=== PATIENT | female | born 1990 | race Caucasian/White ===

== ENCOUNTER 2018-11-28 21:57 | Emergency (ER) | payer MEDICAID, OTHER ==
[~2018-11-28] VITALS: Ht 162.6 cm; Wt 70.0 kg
[2018-11-28 22:02] VITALS: Ht 162.6 cm; Wt 70.0 kg
[2018-11-28] MEDS ORDERED: HYDROmorphONE 1 MG/ML SYG IV STA (22:23)
[2018-11-28] MEDS ORDERED: SOD CHLORIDE 0.9% 1,000 ML IV STA (22:23)
[2018-11-28] MEDS ORDERED: ONDANSETRON 4 MG INJ IV STA (22:23)
[2018-11-29] MEDS ORDERED: SOD CHLORIDE 0.9% 100 ML ONE (00:19)
[2018-11-29] MEDS ORDERED: IOHEXOL 300MG/ML 150 ML BTL ONE (00:19)
[2018-11-29 03:33] VITALS: BP 94/60; PULSE 68; RESP 18
[2018-11-29] MEDS ORDERED: HYDR-3980 PO (03:35)
[2018-11-29] MEDS ORDERED: IBUP800T48 PO (03:35)
--- NOTE | 2018-12-19 22:26 | ERD ---
ER Documentation Chief Complaint Chief Complaint bib ra from home for abd. pain and vag bleed, hx of endometriosis HPI This is a 28-year-old female who is here for diffuse pelvic pain, she did start her menstrual cycle yesterday. She has a history of endometriosis and is feeling like this is an exacerbation of her typical endometriosis symptoms of pelvic pain. She has a pelvic pain is crampy and diffuse and radiates to the back at times. No dizziness no nausea vomiting diarrhea or GI other GI symptoms. No dysuria or hematuria ROS All systems reviewed and are negative except as per history of present illness. Medications Home Meds Active Scripts Ibuprofen* (Motrin*) 800 Mg Tab, 800 MG PO Q6H PRN for PAIN AND OR ELEVATED TEMP, #30 TAB Prov:LEKKOS,LIASTOLOS A. DO 11/29/18 Hydrocodone/Acetaminophen ([place] 10-325 Tablet) 1 Each Tablet, 1 TAB PO Q6H PRN for PAIN, #9 TAB Prov:LEKKOS,APOSTOLOS A. DO 11/29/18 Allergies Allergies: Coded Allergies: No Known Allergy (Unverified , 11/28/18) PMhx/Soc Medical and Surgical Hx: pt denies Medical Hx Hx Miscellaneous Medical Probl: Yes (endometriosis ) Hx Alcohol Use: No Hx Substance Use: No Hx Tobacco Use: No Smoking Status: Never smoker FmHx Family History: No coronary disease Physical Exam Physical Exam Const: Well-developed, well-nourished Head: Atraumatic, normocephalic Eyes: Normal Conjunctiva, PERRLA, EOMI, normal sclera, no nystagmus ENT: Normal External Ears, Nose and Mouth, moist mucus membranes. Neck: Full range of motion. No meningismus, no lymphadenopathy. Resp: Clear to auscultation bilaterally, no wheezing, rhonchi, rales Cardio: Regular rate and rhythm, no murmurs, S1 S2 present Abd: Soft, diffuse mild pelvic tenderness, non distended. Normal bowel sounds, no guarding or rebound, no pulsitile abdominal masses or bruits Skin: No petechiae or rashes, no ecchymosis , no maculopapular rash Back: No midline or flank tenderness Ext: No cyanosis, or edema, FROM x 4, normal inspection, n eurovascularly intact x 4 Neur: Awake and alert, STR 5/5 x 4, sensation intact x 4, no focal findings, cerebellum intact Psych: Normal Mood and Affect Results 24 hrs Laboratory Tests Test 11/28/18 00:22 11/28/18 22:43 Urine Color YELLOW Urine Clarity SLIGHTLY CLOUDY Urine pH 6.0 Urine Specific [place] 1.029 Urine Ketones NEGATIVE mg/dL Urine Nitrite NEGATIVE mg/dL Urine Bilirubin NEGATIVE mg/dL Urine Urobilinogen NEGATIVE mg/dL Urine Leukocyte Esterase NEGATIVE [place]/ul Urine Microscopic RBC 4 /HPF Urine Microscopic WBC 2 /HPF Urine Squamous Epithelial Cells FEW /HPF Urine Bacteria FEW /HPF Urine Mucus FEW /HPF Urine Hemoglobin 3+ mg/dL Urine Glucose NEGATIVE mg/dL Urine Total Protein NEGATIVE mg/dl White Blood Count 11.9 10^3/ul Red Blood Count 4.65 10^6/ul Hemoglobin 10.1 g/dl Hematocrit 33.8 % Mean Corpuscular Volume 72.7 fl Mean Corpuscular Hemoglobin 21.7 pg Mean Corpuscular Hemoglobin Concent 29.9 g/dl Red Cell Distribution Width 15.2 % Platelet Count 330 10^3/UL Mean Platelet Volume 11.4 fl Immature Granulocytes % 0.300 % Neutrophils % 76.3 % Lymphocytes % 18.1 % Monocytes % 4.5 % Eosinophils % 0.0 % Basophils % 0.8 % Nucleated Red Blood Cells % 0.0 /100WBC Immature Granulocytes # 0.040 10^3/ul Neutrophils # 9.0 10^3/ul Lymphocytes # 2.2 10^3/ul Monocytes # 0.5 10^3/ul Eosinophils # 0.0 10^3/ul Basophils # 0.1 10^3/ul Nucleated Red Blood Cells # 0.0 10^3/ul Sodium Level 139 mmol/L Potassium Level 3.6 mmol/L Chloride Level 105 mmol/L Carbon Dioxide Level 24 mmol/L Anion Gap 10 Blood Urea Nitrogen 16 mg/dl Creatinine 0.74 mg/dl Est Glomerular Filtrat Rate mL/min > 60 mL/min Glucose Level 110 mg/dl Calcium Level 8.9 mg/dl Total Bilirubin 0.4 mg/dl Direct Bilirubin 0.00 mg/dl Indirect Bilirubin 0.4 mg/dl Aspartate Amino Transf (AST/SGOT) 19 IU/L Alanine Aminotransferase (ALT/SGPT) 15 IU/L Alkaline Phosphatase 95 IU/L Total Protein 7.4 g/dl Albumin 4.2 g/dl Globulin 3.20 g/dl Albumin/Globulin Ratio 1.31 Lipase 56 U/L Serum HCG, Qualitative NEGATIVE Current Medications Medications Dose Sig/Gerardo Start Time Status Last (Trade) Ordered Route PRN Stop Time Admin Dose Reason Admin Sodium 1,000 ml @ Q1H STAT 11/28/18 DC 11/28/18 Chloride 1,000 mls/hr IV 22:23 22:46 11/28/18 23:22 1 mg ONCE STAT 11/28/18 DC 11/28/18 Hydromorphone IV 22: 22:44 HCl 11/28/18 22:25 (Dilaudid) Ondansetron 4 mg ONCE STAT 11/28/18 DC 11/28/18 HCl (Zofran IV 22: 22:43 Inj) 11/28/18 22:25 IV Flush 10 ml STK-MED 11/29/18 DC 11/29/18 (NS 10 ml) ONCE .ROUTE 00:19 00:29 11/29/18 00:20 Sodium 100 ml @ ud STK-MED 11/29/18 DC 11/29/18 Chloride ONCE .ROUTE 00:19 00:29 11/29/18 00:20 Iohexol 150 ml STK-MED 11/29/18 DC 11/29/18 (Omnipaque ONCE .ROUTE 00:19 00:29 300mg/ ml) 11/29/18 00:20 Procedures/[place] [id number] Radiology Main Line: [phone] DIAGNOSTIC IMAGING REPORT Patient: SMITH CARRERA : 1990 Age: 28 Sex: F MR #: [id number] DOS: 11/28/18 2253 Ordering MD: HETAL SHANKS DO Location: E/R Room/Bed: PROCEDURE: CT ABDOMEN AND PELVIS WITHOUT AND WITH CONTRAST CLINICAL INDICATION: Lower abdominal pain. TECHNIQUE: CT of the abdomen, and pelvis was performed without contrast and following administration of 90 mL IV Omnipaque-300. Oral contrast was not administered prior to the examination. Coronal and sagittal reformatted images were obtained from the axial source im ages. Images were reviewed on a high-resolution PACS workstation. DICOM images are available. Dose information: Based on a 32 cm phantom, the estimated radiation dose (CTDIvol mGy) for each series in this exam 9.85. The estimated cumulative dose (DLP mGy-cm) is 564.68. One or more of the following dose reduction techniques were used: - Automated exposure control. - Adjustment of the mA and/or kV according to patient size. - Use of iterative reconstruction technique. COMPARISON: No previous CT examinations of the abdomen and pelvis. Correlate with pelvic ultrasound 11/28/2089 FINDINGS: LUNG BASES: Right middle and anterior left lower lobe discoid atelectasis or scar the ABDOMEN/PELVIS: Liver: Hepatomegaly (20 cm). Hepatic vasculature: Portal veins, splenic vein and SMV are patent. Hepatic veins are patent. Gallbladder: Contracted Bile ducts: No intrahepatic or extrahepatic biliary duct dilatation. Spleen: Normal. Pancreas: Normal. Adrenal glands: Normal. Kidneys and ureters: Normal. Aorta and IVC: Aorta is normal caliber and patent. Lymph nodes: Normal. Gastrointestinal tract: Moderate retained debris in the stomach. Small bowel loops are nondistended. There is moderate retained fecal matter in the colon which may reflect constipation. Appendix: The appendix measures 10 mm. There are no CT findings to suggest appendicitis. Bladder: Normal. Pelvic Organs: There is a left adnexal cyst located immediately cephalad to the uterine fundus measuring 2.9 x 2.3 cm. Findings are demonstrated on axial image 131 of series 3. 10 mm right ovarian follicle. Peritoneal cavity: No free fluid or free intraperitoneal air. Abdominal wall: Normal. BONES: Musculoskeletal: No acute fracture. No suspicious bone lesions. IMPRESSION: 1. Left adnexal cyst located immediately cephalad to the uterine fundus measuring 2.9-2.3 cm. Right ovarian follicle measuring 10 mm. 2. Hepatomegaly. 3. The appendix measures [address] evidence of appendicitis. 4. Moderate retained fecal matter in the colon which may reflect constipation. RPTAT: HRSR Physician Tracee Date Time Electronically viewed and signed by Physician Tracee on 11/29/2018 03:08 RR/ CC: HETAL SHANKS DO [id number] [place] [id number] Radiology Main Line: [phone] DIAGNOSTIC IMAGING REPORT Patient: SMITH CARRERA : 1990 Age: 28 Sex: F MR #: [id number] DOS: 11/28/18 2223 Ordering MD: HETAL SHANKS DO Location: E/R Room/Bed: PROCEDURE: US Pelvis. CLINICAL INDICATION: Pelvic pain. TECHNIQUE: Multiple sonographic images of the pelvis were obtained utilizing a transabdominal and endovaginal technique. The images were reviewed on a PACS workstation. COMPARISON: None available at the time of dictation. FINDINGS: The uterus is visualized and measures 7.9 x 4.4 x 5.6 cm. There is diffuse heterogeneous hypoechoic echotexture of the uterine wall. No fibroid is seen. The endometrial echo complex is normal and measures 8 mm. No focal endometrial abnormality is seen. There is no evidence for free fluid. No adnexal masses are noted. The right ovary has a normal echotexture and measures 3.0 x 2.1 x 2.2 cm. There is normal Doppler flow. There are no enlarged follicles. The left ovary has a normal echotexture and measures 3.2 x 2.0 x 2.5 cm. There is normal Doppler flow. There are no enlarged follicles. IMPRESSION: 1. Normal sonographic findings of the uterus and bilateral ovaries. RPTAT: HGAS .Blade Hernandez MD, MD Date Time Electronically viewed and signed by .Blade Hernandez MD, on 11/29/2018 02:07 .S/ CC: HETAL SHANKS DO [id number] No acute process on CAT scan or ultrasound of the cyst on the left side near the adnexa. I did discuss this with the patient to follow-up with. She is feeling better after treatment and gave her warning signs to return Departure Diagnosis: Primary Impression: Endometriosis Additional Impression: Pelvic pain Condition: Stable Patient Instructions: Endometriosis, Pelvic Pain, Unknown Cause HETAL SHANKS DO Dec 19, 2018 22:26
== END 2018-11-29 03:43 | disposition home or self-care (01) ==
LOC: E/R 21:57
DX: N80.0 Endometriosis of uterus (principal)
CPT/HCPCS: 74177; 76830; 76856; 80053; 81001; 83690; 84703; 85025; J1170; J2405; J7030; Q9967; Z7610; 36415; 96361; 96374; 96375